=== PATIENT | male | born 1970 | race Caucasian/White ===

== ENCOUNTER → 2018-04-18 | Outpatient (CLI) | payer OTHER ==
--- NOTE | 2018-04-18 15:24 | Diagnostic Imaging Report ---
ADDENDUM #1 Addendum: This is an addendum to correct a typo on the impression. It should say hepatic steatosis and NOT hepatic metastasis. Signed by: Dr. Julisa Espinoza M.D. on 04/18/2018 4:23 PM ORIGINAL REPORT EXAM: Right Upper Quadrant Ultrasound INDICATION: \S\ELEVATED LIVER ENZYMES COMPARISON: None. TECHNIQUE: Transverse and longitudinal images of the right upper abdomen were obtained. FINDINGS: Liver: Size: 13.3 cm in the right midclavicular line, normal Appearance: Increased echogenicity, smooth contour Mass: No focal masses Gallbladder: Stones/Sludge: None Wall: 0.2 cm Appearance: No wall thickening, pericholecystic fluid or hydrops. Sonographic Berkowitz's Sign: Negative Bile Ducts: Intrahepatic Ducts: No dilatation Extrahepatic Ducts: Common bile duct measures 0.2 cm, no dilatation Pancreas: Visualized portions of the pancreatic head, neck and proximal body are normal. Kidneys: Length: Right 10 cm Echogenicity: Normal Collecting System: No hydronephrosis Stone: None Cyst/Mass: None Vessels: Aorta: Visualized portions are normal Inferior Vena Cava: Visualized portions are normal Main Portal Vein: 0.8 cm, normal size with hepatopetal flow. Free Fluid: No ascites or pleural effusion IMPRESSION: Hepatic metastasis. Otherwise, unremarkable right upper quadrant ultrasound. Signed by: Dr. Julisa Espinoaz M.D. on 04/18/2018 3:21 PM
== END ==
LOC: US 13:54
PROVIDERS: ATTEND Family Medicine
DX: R74.8 Abnormal levels of other serum enzymes (principal); R79.89 Other specified abnormal findings of blood chemistry
CPT/HCPCS: 76705